=== PATIENT | female | born 1980 | race African-American/Black ===

== ENCOUNTER 2017-11-25 18:50 | Emergency (ER) | payer SELFPAY ==
[~2017-11-25] VITALS: Ht 160 cm; Wt 52.0 kg
[2017-11-25 18:56] VITALS: BP 158/105; PULSE 98; RESP 16; TEMP 97.4; O2SAT 97
[2017-11-25 19:01] VITALS: BP 149/93
--- NOTE | 2017-11-25 19:41 | PD ---
HPI Chief Complaint: Headache Time Seen by Provider: 19:41 Travel History International Travel<30 days: No Contact w/Intl Traveler<30days: No Traveled to known affect area: No History of Present Illness HPI 36-year-old female came to the emergency room with history of headache that has been going on for past 3-4 days. 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 She did not go to work today because of the headache. All the stress makes the headache worse. She has been nauseous but no vomiting. Vital signs are stable. Light seems to make the headache worse. No history of fever or chills. No history of neck stiffness. Patient has history of frequent headaches. Headache is mostly bitemporal without any radiation. Currently she says the headache is 8 out of 10 and throbbing. PFSH Past Medical History Narrative Medical List of her past medical, surgical, social and family history is reviewed from the nursing note. Diminished Hearing: No Inguinal Hernia: Yes (repaired as a child) Tetanus Vaccination: Unknown Influenza Vaccination: No ?: Not LMP: 4 months ago, irrregular Past Surgical History Other Surgery: Yes (hernia repair right groin as a child) Social History Alcohol Use: Yes (occasionally ) Tobacco Use: Yes Substance Use: No Allergies-Medications (Allergen,Severity, Reaction): Coded Allergies: No Known Allergies (Unverified , 11/25/17) Comments No known drug allergies. Reported Meds & Prescriptions Reported Meds & Active Scripts Active Fioricet (Qqtusovjmj-Qdmyzndtdvjzg-Kasszcoc) 50-300-40 Mg Cap 1 Cap PO Q4H PRN Narrative Medication List of her home medications reviewed from the nursing note. Review of Systems Except as stated in HPI: all other systems reviewed are Neg HENT: Positive: Headaches Gastrointestinal: Positive: Nausea Physical Exam Narrative GENERAL: Awake, alert, moderate distress SKIN: Focused skin assessment warm/dry. HEAD: Atraumatic. Normocephalic. EYES: Pupils equal and round. No scleral icterus. No injection or drainage. ENT: No nasal bleeding or discharge. Mucous membranes pink and moist. NECK: Trachea midline. No JVD. No neck stiffness or meningeal CARDIOVASCULAR: Regular rate and rhythm. No murmur appreciated. RESPIRATORY: No accessory muscle use. Clear to auscultation. Breath sounds equal bilaterally. GASTROINTESTINAL: Abdomen soft, non-tender, nondistended. Hepatic and splenic margins not palpable. MUSCULOSKELETAL: No obvious deformities. No clubbing. No cyanosis. No edema. NEUROLOGICAL: Awake and alert. No obvious cranial nerve deficits. Motor grossly within normal limits. Normal speech. PSYCHIATRIC: Appropriate mood and affect; insight and judgment normal. Data Data Last Documented VS Vital Signs Date Time Temp Pulse Resp B/P (MAP) Pulse Ox O2 Delivery O2 Flow Rate FiO2 11/25/17 19:01 149/93 (111) 11/25/17 18:56 97.4 98 16 97 Orders Orders Complete Blood Count With Diff (11/25/17 19:45) Basic Metabolic Panel (Bmp) (11/25/17 19:45) Prochlorperazine Inj (Compazine Inj) (11/25/17 19:45) Sodium Chlor 0.9% 1000 Ml Inj (Ns 1000 M (11/25/17 19:45) Ed Discharge Order (11/25/17 20:47) Labs Laboratory Tests Test 11/25/17 19:58 White Blood Count 7.6 TH/MM3 Red Blood Count 5.29 MIL/MM3 Hemoglobin 11.8 GM/DL Hematocrit 37.7 % Mean Corpuscular Volume 71.4 FL Mean Corpuscular Hemoglobin 22.3 PG Mean Corpuscular Hemoglobin Concent 31.2 % Red Cell Distribution Width 18.8 % Platelet Count 414 TH/MM3 Mean Platelet Volume 7.7 FL Neutrophils (%) (Auto) 47.0 % Lymphocytes (%) (Auto) 40.9 % Monocytes (%) (Auto) 10.3 % Eosinophils (%) (Auto) 1.0 % Basophils (%) (Auto) 0.8 % Neutrophils # (Auto) 3.6 TH/MM3 Lymphocytes # (Auto) 3.1 TH/MM3 Monocytes # (Auto) 0.8 TH/MM3 Eosinophils # (Auto) 0.1 TH/MM3 Basophils # (Auto) 0.1 TH/MM3 CBC Comment DIFF FINAL Differential Comment Blood Urea Nitrogen 17 MG/DL Creatinine 0.93 MG/DL Random Glucose 86 MG/DL Calcium Level 9.1 MG/DL Sodium Level 141 MEQ/L Potassium Level 3.7 MEQ/L Chloride Level 105 MEQ/L Carbon Dioxide Level 24.4 MEQ/L Anion Gap 12 MEQ/L Estimat Glomerular Filtration Rate 84 ML/MIN MDM Medical Decision Making Medical Screen Exam Complete: Yes Emergency Medical Condition: Yes Medical Record Reviewed: Yes Differential Diagnosis Headache NOS, status migrainous Narrative Course 8:50 PM patient was given IV Reglan and IV fluid bolus as per the headache protocol. Blood test results are back and within normal limit. I just went and reassessed her and she was fast asleep. After waking up she said the headache was completely gone and she wanted to go home. I am comfortable discharging her home. She will go home on prescription and discharge instructions which have discussed with her and she understands. Procedures EKG Prior to Arrival: No Diagnosis Primary Impression: Migraine with status migrainosus Qualified Codes: G43.911 - Migraine, unspecified, intractable, with status migrainosus Referrals: Primary Care Physician Departure Forms: Tests/Procedures, Work Release Enter return to work date: November 26, 2017 Additional Instructions: Return to the ER if condition worsens or any other new concerns. Drink coffee or caffeinated beverages since it will keep the headache away. Drink lots of fluid and stay hydrated. Do not drink alcohol especially wine or smoke cigarettes. Food like cheese and chocolate will make the headache worse. Stay away from watching television, computer screen or smart phone screen for next 24 -48 hours. Give rest to your eyes and brain. Take the medication as per the prescription direction. Med/Other Pt SpecificInfo: Prescription(s) given Scripts Dnscbjiucs-Outvrkkqhzckr-Bjfwdrvt (Fioricet) 50-300-40 Mg Cap 1 CAP PO Q4H Y for HEADACHE, #15 CAP 0 Refills Prov: Delonte Kirkland MD 11/25/17 Disposition: 01 DISCHARGE HOME Condition: Stable Delonte Kirkland MD November 25, 2017 19:41
[2017-11-25] MEDS ORDERED: PROCHLORPERAZINE INJ 10 MG/2 ML VIAL IV PUSH ONE (19:45)
[2017-11-25] MEDS ORDERED: SODIUM CHLOR 0.9% 1000 ML INJ 1,000 ML IV ONE (19:45)
[2017-11-25 20:12] LABS: AUTOMATED NEUTROPHIL # 3.6 TH/MM3 (1.8-7.7); BASOPHIL # 0.1 TH/MM3 (0-0.2); BASOPHIL % 0.8 % (0.0-2.0); EOSINOPHIL # 0.1 TH/MM3 (0-0.4); HEMATOCRIT 37.7 % (35.0-46.0); HEMOGLOBIN 11.8 GM/DL (11.6-15.3); LYMPH % 40.9 % (9.0-44.0); LYMPHOCYTE # 3.1 TH/MM3 (1.0-4.8); MEAN CELL VOLUME 71.4 FL (80.0-100.0); MEAN CORPUSCULAR HEMOGLOBIN 22.3 PG (27.0-34.0); MEAN CORPUSCULAR HGB CONC 31.2 % (32.0-36.0); MEAN PLATELET VOLUME 7.7 FL (7.0-11.0); MONO % 10.3 % (0.0-8.0); MONOCYTE # 0.8 TH/MM3 (0-0.9); PLATELET COUNT 414 TH/MM3 (150-450); RED BLOOD COUNT 5.29 MIL/MM3 (4.00-5.30); RED CELL DISTRIBUTION WIDTH 18.8 % (11.6-17.2); WHITE BLOOD COUNT 7.6 TH/MM3 (4.0-11.0)
[2017-11-25 20:24] LABS: BICARBONATE 24.4 MEQ/L (21.0-32.0); CALCIUM 9.1 MG/DL (8.5-10.1); CREATININE 0.93 MG/DL (0.50-1.00)
[2017-11-25] MEDS ORDERED: BUTA1CAP PO (20:46)
== END 2017-11-25 21:01 | disposition home or self-care (01) ==
LOC: NEPD 18:50
DX: G43.911 Migraine, unspecified, intractable, with status migrainosus (principal); R11.0 Nausea; Z72.0 Tobacco use
CPT/HCPCS: 80048; 85025; 96361; 96374; 99284; J0780; J7030

== ENCOUNTER 2017-12-08 11:41 | Emergency (ER) | payer SELFPAY ==
[~2017-12-08] VITALS: Ht 160 cm; Wt 60.0 kg
[~2017-12-08 11:41] MED LIST: BUTA1CAP PO
[2017-12-08 12:12] VITALS: BP 138/98; PULSE 97; RESP 18; TEMP 99; O2SAT 100
[2017-12-08 12:47] LABS: AUTOMATED NEUTROPHIL # 7.4 TH/MM3 (1.8-7.7); BASOPHIL # 0.1 TH/MM3 (0-0.2); BASOPHIL % 0.6 % (0.0-2.0); EOSINOPHIL % 0.4 % (0.0-4.0); HEMATOCRIT 36.4 % (35.0-46.0); HEMOGLOBIN 11.1 GM/DL (11.6-15.3); LYMPH % 20.5 % (9.0-44.0); LYMPHOCYTE # 2.2 TH/MM3 (1.0-4.8); MEAN CELL VOLUME 71.5 FL (80.0-100.0); MEAN CORPUSCULAR HEMOGLOBIN 21.9 PG (27.0-34.0); MEAN CORPUSCULAR HGB CONC 30.6 % (32.0-36.0); MEAN PLATELET VOLUME 7.8 FL (7.0-11.0); MONO % 9.9 % (0.0-8.0); MONOCYTE # 1.1 TH/MM3 (0-0.9); NEUT % 68.6 % (16.0-70.0); PLATELET COUNT 373 TH/MM3 (150-450); RED BLOOD COUNT 5.09 MIL/MM3 (4.00-5.30); RED CELL DISTRIBUTION WIDTH 18.3 % (11.6-17.2); WHITE BLOOD COUNT 10.8 TH/MM3 (4.0-11.0)
[2017-12-08 12:54] LABS: BACTERIA, URINE RARE /hpf; BILIRUBIN, URINE NEG (NEG); BLOOD, URINE NEG (NEG); GLUCOSE,URINE NEG (NEG); KETONE, URINE NEG (NEG); NITRITE,URINE NEG (NEG); PH, URINE 5.5 (5.0-8.5); SQUAMOUS EPITHELIAL CELL URINE 4 /hpf (0-5); URINE COLOR YELLOW (YELLW/STRAW); URINE LEUKOCYTE ESTERASE TRACE (NEG)
[2017-12-08 13:03] LABS: BICARBONATE 26.2 MEQ/L (21.0-32.0); BLOOD UREA NITROGEN 17 MG/DL (7-18); CALCIUM 8.6 MG/DL (8.5-10.1); CHLORIDE 103 MEQ/L (98-107); CREATININE 0.85 MG/DL (0.50-1.00); GLOMERULAR FILTRATION RATE 93 ML/MIN (>89); GLUCOSE,RANDOM 93 MG/DL (74-106); SODIUM (NA) 138 MEQ/L (136-145)
[2017-12-08 13:07] LABS: TROPONIN I LESS THAN 0.02 NG/ML (0.02-0.05)
--- NOTE | 2017-12-08 13:09 | RADRPT ---
EXAM DATE: 12/08/2017 12:48 PM EDT AGE/SEX: 36 years / Female INDICATIONS: Right sided mid-chest pain. CLINICAL DATA: This is the patient's initial encounter. Patient reports that signs and symptoms have been present for 3 days and indicates a pain score of 4/10. MEDICAL/SURGICAL HISTORY: None. None. COMPARISON: No prior [facility] exams available for comparison. FINDINGS: PA and lateral views of the chest demonstrate the lungs to be symmetrically aerated without evidence of mass, infiltrate or effusion. The cardiomediastinal contours are unremarkable. Osseous structures are intact. CONCLUSION: No acute intrathoracic disease.. Electronically signed by: Lawrence Lee MD 12/08/2017 1:07 PM EDT
[2017-12-08 15:44] LABS: ALBUMIN 3.7 GM/DL (3.4-5.0); ALT (GPT) 15 U/L (10-53); AST (GOT) 14 U/L (15-37); DIRECT BILIRUBIN ADULT 0.1 MG/DL (0.0-0.2)
[2017-12-08] MEDS ORDERED: DOXY100C PO (15:44)
[2017-12-08] MEDS ORDERED: DICL75TA PO (15:44)
[2017-12-08] MEDS ORDERED: DOXYCYCLINE HYCLATE 100 MG CAP PO ONE (15:45)
[2017-12-08] MEDS ORDERED: cefTRIAXone INJ 1,000 MG in SODIUM CHLORIDE 0.9% INJ 100 ML IV ONE (15:45)
[2017-12-08 15:46] LABS: ALKALINE PHOSPHATASE 60 U/L (45-117); INDIRECT BILIRUBIN 0.3 MG/DL (0.0-0.8); TOTAL BILIRUBIN ADULT 0.4 MG/DL (0.2-1.0)
--- NOTE | 2017-12-08 15:52 | PD ---
HPI Chief Complaint: [employer] Problem/Complaint Time Seen by Provider: 14:34 Travel History International Travel<30 days: No Contact w/Intl Traveler<30days: No Traveled to known affect area: No History of Present Illness HPI 36-year-old female that presents to the ED for evaluation of right-sided chest pain and abdominal pain as well as discharge. Per patient has had a chest pain for the past 3 days. She has been having pain on the right lower quadrant of the abdomen as well past 3-4 days. She is noted that she has not had a period for the past 4 months. She states that she has been having some whitish/ pinkish discharge for about a week or more now. She states that she was told she was not so she is concerned because she still has the discharge and she has not had a period in 4 months. She states that the pain in the chest comes and goes. More noticeable at night. Per patient pain is 7 out of 10. She denies any urinary symptoms. No bowel movement issues. No allergies to medication. Has not seen anybody for this. Denies any STD exposure per patient. No other medical issues at this time. PFSH Past Medical History Diminished Hearing: No Inguinal Hernia: Yes (repaired as a child) ?: Not Past Surgical History Other Surgery: Yes (hernia repair right groin as a child) Social History Alcohol Use: Yes (occasionally ) Tobacco Use: Yes Substance Use: No Allergies-Medications (Allergen,Severity, Reaction): Coded Allergies: No Known Allergies (Unverified , 11/25/17) Reported Meds & Prescriptions Reported Meds & Active Scripts Active Diclofenac Sodium DR (Diclofenac Sodium) 75 Mg Tabdr 75 Mg PO BID PRN Doxycycline Hyclate 100 Mg Cap 100 Mg PO BID 10 Days Fioricet (Ifhoqqqiul-Ncwzycozoyvfn-Cwyfeyok) 50-300-40 Mg Cap 1 Cap PO Q4H PRN Review of Systems Except as stated in HPI: all other systems reviewed are Neg Physical Exam Narrative GENERAL: SKIN: Warm and dry. HEAD: Atraumatic. Normocephalic. EYES: Pupils equal and round. No scleral icterus. No injection or drainage. ENT: No nasal bleeding or discharge. Mucous membranes pink and moist. NECK: Trachea midline. No JVD. CARDIOVASCULAR: Regular rate and rhythm. RESPIRATORY: No accessory muscle use. Clear to auscultation. Breath sounds equal bilaterally. GASTROINTESTINAL: Abdomen soft, non-tender, nondistended. Hepatic and splenic margins not palpable. Pelvic exam: Seen with female nurse present. Patient does appear to have significant discharge coming from the vagina and the cervix. No cervix motion tenderness. No redness or signs of bleeding. No obvious adnexal tenderness. No lymphadenopathy noted. External genitalia appears to be intact. MUSCULOSKELETAL: Extremities without clubbing, cyanosis, or edema. No obvious deformities. NEUROLOGICAL: Awake and alert. No obvious cranial nerve deficits. Motor grossly within normal limits. Five out of 5 muscle strength in the arms and legs. Normal speech. PSYCHIATRIC: Appropriate mood and affect; insight and judgment normal. Data Data Last Documented VS Vital Signs Date Time Temp Pulse Resp B/P (MAP) Pulse Ox O2 Delivery O2 Flow Rate FiO2 12/08/17 12:12 99.0 97 18 138/98 (111) 100 Orders Orders Electrocardiogram (12/08/17 12:15) Complete Blood Count With Diff (12/08/17 12:15) Basic Metabolic Panel (Bmp) (12/08/17 12:15) Ckmb (Isoenzyme) Profile (12/08/17 12:15) Troponin I (12/08/17 12:15) Urinalysis - C+S If Indicated (12/08/17 12:17) Ed Urine Pregnancytest Poc (12/08/17 12:17) Chest, Pa & Lat (12/08/17 ) Gc And Chlamydia Pcr (12/08/17 14:39) Wet Prep Profile (12/08/17 14:39) Hepatic Functional Panel (12/08/17 12:20) Lipase (12/08/17 12:20) Ceftriaxone Inj (Rocephin Inj) (12/08/17 15:45) Doxycycline (Vibramycin) (12/08/17 15:45) Labs Laboratory Tests Test 12/08/17 12:20 12/08/17 15:15 White Blood Count 10.8 TH/MM3 Red Blood Count 5.09 MIL/MM3 Hemoglobin 11.1 GM/DL Hematocrit 36.4 % Mean Corpuscular Volume 71.5 FL Mean Corpuscular Hemoglobin 21.9 PG Mean Corpuscular Hemoglobin Concent 30.6 % Red Cell Distribution Width 18.3 % Platelet Count 373 TH/MM3 Mean Platelet Volume 7.8 FL Neutrophils (%) (Auto) 68.6 % Lymphocytes (%) (Auto) 20.5 % Monocytes (%) (Auto) 9.9 % Eosinophils (%) (Auto) 0.4 % Basophils (%) (Auto) 0.6 % Neutrophils # (Auto) 7.4 TH/MM3 Lymphocytes # (Auto) 2.2 TH/MM3 Monocytes # (Auto) 1.1 TH/MM3 Eosinophils # (Auto) 0.0 TH/MM3 Basophils # (Auto) 0.1 TH/MM3 CBC Comment DIFF FINAL Differential Comment Urine Color YELLOW Urine Turbidity CLEAR Urine pH 5.5 Urine Specific [place] 1.024 Urine Protein NEG mg/dL Urine Glucose (UA) NEG mg/dL Urine Ketones NEG mg/dL Urine Occult Blood NEG Urine Nitrite NEG Urine Bilirubin NEG Urine Urobilinogen LESS THAN 2.0 MG/DL Urine Leukocyte Esterase TRACE Urine RBC 1 /hpf Urine WBC LESS THAN 1 /hpf Urine Squamous Epithelial Cells 4 /hpf Urine Bacteria RARE /hpf Microscopic Urinalysis Comment CULT NOT INDICATED Blood Urea Nitrogen 17 MG/DL Creatinine 0.85 MG/DL Random Glucose 93 MG/DL Total Protein 8.0 GM/DL Albumin 3.7 GM/DL Calcium Level 8.6 MG/DL Alkaline Phosphatase 60 U/L Aspartate Amino Transf (AST/SGOT) 14 U/L Alanine Aminotransferase (ALT/SGPT) 15 U/L Total Bilirubin 0.4 MG/DL Direct Bilirubin 0.1 MG/DL Sodium Level 138 MEQ/L Potassium Level 4.4 MEQ/L Chloride Level 103 MEQ/L Carbon Dioxide Level 26.2 MEQ/L Anion Gap 9 MEQ/L Estimat Glomerular Filtration Rate 93 ML/MIN Indirect Bilirubin 0.3 MG/DL Total Creatine Kinase 66 U/L Troponin I LESS THAN 0.02 NG/ML Lipase 120 U/L Clue Cells (Wet Prep) NONE SEEN Vaginal Trichomonas (Wet Prep) NONE SEEN Vaginal Yeast (Wet Prep) NONE SEEN MDM Medical Decision Making Medical Screen Exam Complete: Yes Emergency Medical Condition: Yes Medical Record Reviewed: Yes Interpretation(s) CBC & BMP Diagram 12/08/17 12:20 Total Protein 8.0, Albumin 3.7, Calcium Level 8.6, Alkaline Phosphatase 60, Aspartate Amino Transf (AST/SGOT) 14 L, Alanine Aminotransferase (ALT/SGPT) 15, Total Bilirubin 0.4, Direct Bilirubin 0.1 UA does show some leukocyte esterase otherwise unremarkable. With prep negative. Chest x-ray negative for acute disease. EKG shows sinus rhythm with no sign of acute ischemia or arrhythmia read by me and attending. Differential Diagnosis Vaginitis versus a typical chest pain versus PID versus STD Narrative Course 36-year-old female that presents to the ED for evaluation of right-sided chest pain, right lower abdominal pain and discharge. Patient was properly examined and was found to have signs and symptoms of unclear etiology but appears to be benign. Most concerning is her discharge and lower abdominal pain. Deafly concern for infectious etiology. I recommend pelvic. Patient agrees. Pelvic did reveal significant discharge but no sign of cervical motion tenderness. Deafly concern for possible mild PID. Will treat with ceftriaxone and doxycycline and given first dose here. Patient was given Ary to make the doxycycline cheaper. She was given prescription for diclofenac sodium for pain. Labs and imaging were essentially unremarkable otherwise. This appears to be likely a typical chest pain. Possibly related to the infection on her vagina. Told to follow-up with PCP. See ED if worsening symptoms. No sex for 2 weeks and always use protection. Diagnosis Primary Impression: Vaginitis Qualified Codes: N76.0 - Acute vaginitis Patient Instructions: General Instructions Additional Instructions: Take medications as prescribed. When you go to the pharmacy use the Ary given to you to make the medications cheaper. No sexual intercourse until better in the short completely gone. Preferably at least 2 weeks. See ED if any worsening symptoms. Always use protection. Follow-up with PCP. Med/Other Pt SpecificInfo: Prescription(s) given Scripts Diclofenac Sodium DR (Diclofenac Sodium DR) 75 Mg Tabdr 75 MG PO BID Y for PAIN SCALE 1 TO 10, #20 TAB 0 Refills Prov: Pantera Gonzalez MD 12/08/17 Doxycycline Hyclate (Doxycycline Hyclate) 100 Mg Cap 100 MG PO BID for Infection for 10 Days, #20 CAP 0 Refills Prov: Pantera Gonzalez MD 12/08/17 Disposition: 01 DISCHARGE HOME Condition: Tonny Busch December 08, 2017 15:52
--- NOTE | 2017-12-08 15:53 | PD ---
Data Data Last Documented VS Vital Signs Date Time Temp Pulse Resp B/P (MAP) Pulse Ox O2 Delivery O2 Flow Rate FiO2 12/08/17 12:12 99.0 97 18 138/98 (111) 100 Orders Orders Electrocardiogram (12/08/17 12:15) Complete Blood Count With Diff (12/08/17 12:15) Basic Metabolic Panel (Bmp) (12/08/17 12:15) Ckmb (Isoenzyme) Profile (12/08/17 12:15) Troponin I (12/08/17 12:15) Urinalysis - C+S If Indicated (12/08/17 12:17) Ed Urine Pregnancytest Poc (12/08/17 12:17) Chest, Pa & Lat (12/08/17 ) Gc And Chlamydia Pcr (12/08/17 14:39) Wet Prep Profile (12/08/17 14:39) Hepatic Functional Panel (12/08/17 12:20) Lipase (12/08/17 12:20) Ceftriaxone Inj (Rocephin Inj) (12/08/17 15:45) Doxycycline (Vibramycin) (12/08/17 15:45) Labs Laboratory Tests Test 12/08/17 12:20 12/08/17 15:15 White Blood Count 10.8 TH/MM3 Red Blood Count 5.09 MIL/MM3 Hemoglobin 11.1 GM/DL Hematocrit 36.4 % Mean Corpuscular Volume 71.5 FL Mean Corpuscular Hemoglobin 21.9 PG Mean Corpuscular Hemoglobin Concent 30.6 % Red Cell Distribution Width 18.3 % Platelet Count 373 TH/MM3 Mean Platelet Volume 7.8 FL Neutrophils (%) (Auto) 68.6 % Lymphocytes (%) (Auto) 20.5 % Monocytes (%) (Auto) 9.9 % Eosinophils (%) (Auto) 0.4 % Basophils (%) (Auto) 0.6 % Neutrophils # (Auto) 7.4 TH/MM3 Lymphocytes # (Auto) 2.2 TH/MM3 Monocytes # (Auto) 1.1 TH/MM3 Eosinophils # (Auto) 0.0 TH/MM3 Basophils # (Auto) 0.1 TH/MM3 CBC Comment DIFF FINAL Differential Comment Urine Color YELLOW Urine Turbidity CLEAR Urine pH 5.5 Urine Specific [place] 1.024 Urine Protein NEG mg/dL Urine Glucose (UA) NEG mg/dL Urine Ketones NEG mg/dL Urine Occult Blood NEG Urine Nitrite NEG Urine Bilirubin NEG Urine Urobilinogen LESS THAN 2.0 MG/DL Urine Leukocyte Esterase TRACE Urine RBC 1 /hpf Urine WBC LESS THAN 1 /hpf Urine Squamous Epithelial Cells 4 /hpf Urine Bacteria RARE /hpf Microscopic Urinalysis Comment CULT NOT INDICATED Blood Urea Nitrogen 17 MG/DL Creatinine 0.85 MG/DL Random Glucose 93 MG/DL Total Protein 8.0 GM/DL Albumin 3.7 GM/DL Calcium Level 8.6 MG/DL Alkaline Phosphatase 60 U/L Aspartate Amino Transf (AST/SGOT) 14 U/L Alanine Aminotransferase (ALT/SGPT) 15 U/L Total Bilirubin 0.4 MG/DL Direct Bilirubin 0.1 MG/DL Sodium Level 138 MEQ/L Potassium Level 4.4 MEQ/L Chloride Level 103 MEQ/L Carbon Dioxide Level 26.2 MEQ/L Anion Gap 9 MEQ/L Estimat Glomerular Filtration Rate 93 ML/MIN Indirect Bilirubin 0.3 MG/DL Total Creatine Kinase 66 U/L Troponin I LESS THAN 0.02 NG/ML Lipase 120 U/L Clue Cells (Wet Prep) NONE SEEN Vaginal Trichomonas (Wet Prep) NONE SEEN Vaginal Yeast (Wet Prep) NONE SEEN MDM Supervised Visit with MARISOL: Yes Narrative Course I, Dr. Gonzalez, have reviewed the advance practice practitioner's documentation and am in agreement, met with the patient face to face, made the diagnosis, and the medical decision making was done by me. *My assessment and Findings: I have met with the patient. Extensive workup reviewed with her. Stable for outpatient follow-up. Patient found to have some pelvic infection which we covered with antibiotics Diagnosis Primary Impression: Vaginitis Qualified Codes: N76.0 - Acute vaginitis Patient Instructions: General Instructions Additional Instruction: Take medications as prescribed. When you go to the pharmacy use the Ary given to you to make the medications cheaper. No sexual intercourse until better in the short completely gone. Preferably at least 2 weeks. See ED if any worsening symptoms. Always use protection. Follow-up with PCP. Scripts Diclofenac Sodium DR (Diclofenac Sodium DR) 75 Mg Tabdr 75 MG PO BID Y for PAIN SCALE 1 TO 10, #20 TAB 0 Refills Prov: Pantera Gonzalez MD 12/08/17 Doxycycline Hyclate (Doxycycline Hyclate) 100 Mg Cap 100 MG PO BID for Infection for 10 Days, #20 CAP 0 Refills Prov: Pantera Gonzalez MD 12/08/17 Disposition: 01 DISCHARGE HOME Condition: Stable Pantera Gonzalez MD December 08, 2017 15:53
--- NOTE | 2017-12-09 13:49 | EKG ---
Date Performed: 12/08/2017 Time Performed: 12:17:38 PTAGE: 36 years EKG: Sinus rhythm ST CHANGES COMPATIBLE WITH EARLY REPOLARIZATION ATRIAL ABNORMALITY NO PRIOR TRACING DOCTOR: Kar Mcgee Interpretating Date/Time 12/09/2017 13:48:51
== END 2017-12-08 16:50 | disposition home or self-care (01) ==
LOC: NEPC 11:41
DX: N76.0 Acute vaginitis (principal); Z72.0 Tobacco use
CPT/HCPCS: 71046; 80048; 80076; 81001; 82550; 83690; 84484; 84703; 85025; 87210; 87491; 87591; 93005; 96374; 99285; J0696